=== PATIENT | female | born 1990 | race Caucasian/White ===

== ENCOUNTER 2019-06-25 20:57 | Emergency (ER) | payer OTHER ==
[~2019-06-25] VITALS: Ht 157.5 cm; Wt 59.9 kg
[~2019-06-25 20:57] MED LIST: CLIN300C8 PO; HYDR-3165 PO; IBUP800T19 PO; PROM12.58 PO
[2019-06-25 21:03] VITALS: BP 104/70
[2019-06-25] MEDS ORDERED: PRED15SO24 PO (21:23)
[2019-06-25] MEDS ORDERED: OSEL6SUS7 PO (21:23)
--- NOTE | 2019-06-25 21:24 | PHYS DOC ---
Past History Past Medical History: No Pertinent History Past Surgical History: No Surgical History Smoking: Cigarettes Alcohol Use: None Drug Use: None Adult General Chief Complaint Chief Complaint: COUGH HPI HPI 29-year-old female presents with one-day history of fever/chills with associated cough and generalized malaise. Patient's daughter was in emergency department at [facility] yesterday and diagnosed with influenza. Patient is now experiencing the same symptoms her daughter had yesterday. Denies . Review of Systems Review of Systems Constitutional: Reports subjective fever, chills, and generalized malaise Eyes: Denies redness or eye pain HENT: Reports nasal congestion and sore throat Respiratory: Reports cough; denies shortness of breath Cardiovascular: Denies chest pain or palpitations GI: Denies abdominal pain, nausea, or vomiting : Denies dysuria or hematuria Musculoskeletal: Denies back pain or joint pain Integument: Denies rash or skin lesions Neurologic: Denies headache, focal weakness or sensory changes Complete systems were reviewed and found to be within normal limits, except as documented in this note. Allergies Allergies Allergies Coded Allergies Type Severity Reaction Last Updated Verified Penicillins Allergy Unknown 08/08/16 Yes Physical Exam Physical Exam Constitutional: Well developed, well nourished, no acute distress, ill but non- toxic appearance HENT: Normocephalic, atraumatic, oropharynx moist, TMs clear, no tonsillar exudate Eyes: PERRL, EOMI, conjunctiva normal, no discharge Neck: Normal range of motion, no tenderness, supple, no meningeal signs Cardiovascular: Heart rate tachycardic, regular rhythm Lungs & Thorax: Bilateral breath sounds clear to auscultation, no wheezing Abdomen: Soft, no tenderness Skin: Warm, dry, no erythema, no rash Extremities: No tenderness, ROM intact, no edema Neurologic: Alert and oriented X 3, no focal deficits noted Psychologic: Affect normal, judgement normal Current Patient Data Vital Signs Vital Signs Date Time Temp Pulse Resp B/P (MAP) Pulse Ox O2 Delivery O2 Flow Rate FiO2 06/25/19 21:03 103.1 128 16 96 EKG EKG [] Radiology/Procedures Radiology/Procedures [] Course & Med Decision Making Course & Med Decision Making Patient presents with viral type symptoms with history of daughter who tested positive for influenza. Symptomatic treatment provided with oral steroid. Fever addressed. Prescription for Tamiflu provided. Patient does report she is unable to swallow pills therefore liquids provided and liquid Tamiflu prescribed. Patient stable for discharge with outpatient follow-up with PCP. Discussed findings and plan with patient and family, who acknowledge understanding and agreement. Thom Disclaimer Thom Disclaimer This electronic medical record was generated, in whole or in part, using a voice recognition dictation system. Departure Departure: Impression: Primary Impression: Upper respiratory infection Additional Impressions: Exposure to influenza Fever Disposition: HOME, SELF-CARE Condition: STABLE Referrals: ARIELA CLARKE DO (PCP) Patient Instructions: Fever, Adult, [id number], Influenza Facts, Influenza, Adult, [id number] Additional Instructions: Use over the counter Tylenol and Ibuprofen for fever or discomfort. Use humidifier at night when sleeping. May use other over the counter cold/cough medications. Scripts Oseltamivir Phosphate (Oseltamivir Phosphate) 6 Mg/1 Ml Susp.recon 12.5 ML PO BID for Influenza for 5 Days, #125 ML 0 Refills Prov: HÉTCOR RODRIGUES DO 06/25/19 Prednisolone (PREDNISOLONE) 15 Mg/5 Ml Solution 20 ML PO DAILY for Influenza for 5 Days, #100 ML 0 Refills Prov: HÉCTOR RODRIGUES DO 06/25/19 Problem Qualifiers Primary Impression: Upper respiratory infection URI type: unspecified URI Qualified Codes: J06.9 - Acute upper respiratory infection, unspecified Additional Impressions: Fever Fever type: unspecified Qualified Codes: R50.9 - Fever, unspecified HÉCTOR RODRIGUES DO Jun 25, 2019 21:24
[2019-06-25] MEDS ORDERED: DEXAMETHASONE SOD PHOS 10 MG/ML VIAL PO ONE (21:30)
[2019-06-25] MEDS ORDERED: IBUPROFEN 100 MG/5 ML ORAL.SUSP. PO ONE (21:30)
[2019-06-25] MEDS ORDERED: DEXAMETHASONE SOD PHOS 10 MG/ML VIAL ONE (21:38)
[2019-06-25] MEDS ORDERED: DEXAMETHASONE SOD PHOS 4 MG/ML VIAL ONE (21:46)
== END 2019-06-25 21:50 | disposition home or self-care (01) ==
LOC: ER 20:57
DX: J06.9 Acute upper respiratory infection, unspecified (principal); Z20.828 Contact with and (suspected) exposure to other viral communicable diseases; F17.210 Nicotine dependence, cigarettes, uncomplicated; Z88.0 Allergy status to penicillin
CPT/HCPCS: 99283; J1100